=== PATIENT | female | born 1965 | race African-American/Black ===

== ENCOUNTER 2017-09-18 11:29 | Emergency (ER) | payer MEDICAID ==
[~2017-09-18] VITALS: Ht 162.6 cm; Wt 63.0 kg
[2017-09-18 11:33] VITALS: BP 156/98
== END 2017-09-18 16:09 | disposition home or self-care (01) ==
LOC: ER 12:07
DX: S52.391A Other fracture of shaft of radius, right arm, initial encounter for closed fracture (principal); Z78.0 Asymptomatic menopausal state; Z98.890 Other specified postprocedural states; W22.8XXA Striking against or struck by other objects, initial encounter; Y93.89 Activity, other specified; Y92.018 Other place in single-family (private) house as the place of occurrence of the external cause
CPT/HCPCS: 29125; 73080; 73090; 73110; 99284; A4565